=== PATIENT | female | born 1995 | race Two or more races ===

== ENCOUNTER 2018-04-10 20:51 | Emergency (ER) | payer OTHER ==
[~2018-04-10] VITALS: Ht 160 cm; Wt 44.0 kg
[2018-04-11] MEDS ORDERED: KETO10TA2 PO (01:21)
[2018-04-11] MEDS ORDERED: NORFLEX100MG PO (01:21)
== END 2018-04-11 01:11 | disposition home or self-care (01) ==
LOC: ER 20:51
DX: R07.89 Other chest pain (principal); M54.89 Other dorsalgia; M54.2 Cervicalgia

== ENCOUNTER 2019-04-28 02:04 | Emergency (ER) | payer OTHER ==
[~2019-04-28] VITALS: Ht 160 cm; Wt 43.1 kg
[~2019-04-28 02:04] MED LIST: KETO10TA2 PO; NORFLEX100MG PO
== END 2019-04-28 03:06 | disposition home or self-care (01) ==
LOC: ER 02:04
DX: F41.9 Anxiety disorder, unspecified (principal); T40.7X5A Adverse effect of cannabis (derivatives), initial encounter

== ENCOUNTER 2023-07-28 18:36 | Emergency (ER) | payer OTHER ==
[~2023-07-28] VITALS: Ht 160 cm; Wt 63.5 kg
[2023-07-28] MEDS ORDERED: FOLIC ACID20 MG (19:22)
[2023-07-28] MEDS ORDERED: PRENATAL + DHA1 EAC1 (19:22)
[2023-07-28 20:45] LABS: HEMATOCRIT 34.2 % (36.0-45.00); HEMOGLOBIN 11.6 g/dL (12.0-15.00); MEAN CELL VOLUME 89.3 fL (80.00-100.00); MEAN CORPUSCULAR HEMOGLOBIN 30.2 pg (27.00-32.0); MEAN CORPUSCULAR HGB CONC 33.8 g/dl (32.0-36.0); PLATELET COUNT 197 K/uL (150-450); RED BLOOD COUNT 3.83 M/uL (4.00-6.00)
[2023-07-28 21:04] LABS: PH,URINE 6.5 (5.0-8.0); URINE APPEARANCE Clear; URINE BILIRRUBIN Negative (NEGATIVE); URINE BLOOD Negative; URINE COLOR Dark Yellow; URINE GLUCOSE Negative (NEGATIVE); URINE LEUKOCYTE Small; URINE NITRATE Negative; URINE PROTEIN Trace (NEGATIVE)
[2023-07-28 21:08] LABS: ALBUMIN 3.8 gm/dL (3.4-5.0); BILIRUBIN TOTAL 0.53 mg/dL (0.3-1.2); CALCIUM 8.9 mg/dL (8.5-10.1); CREATININE SERUM 0.51 mg/dL (0.55-1.02); GFR 146.93; GLOBULINA 3.7 G/DL (2.4-3.5); POTASSIUM 3.97 mEq/L (3.5-5.1); TOTAL PROTEIN 7.5 gm/dL (6.4-8.2)
[2023-07-28 21:08] LABS: URINE BACTERIA 2636.9 uL (0.0-1933); URINE RBC 18.3 uL (0.0-20.8); URINE WBC 148.2 uL (0.0-23.2)
== END 2023-07-28 22:04 | disposition home or self-care (01) ==
LOC: ER 18:37
PROVIDERS: General Practice
DX: O98.511 Other viral diseases complicating pregnancy, first trimester (principal); U07.1 COVID-19; Z3A.08 8 weeks gestation of pregnancy; Z88.2 Allergy status to sulfonamides